=== PATIENT | male | born 1985 | race African-American/Black ===

== ENCOUNTER 2021-03-01 08:38 | Emergency (ER) | payer OTHER, SELFPAY ==
--- NOTE | ~2021-03-01 | XR_ITS ---
XR hand RT min 3V 03/01/2021 09:09 INDICATION: Right hand pain. Laceration. PROCEDURE: 3 views right hand COMPARISON: No prior studies for comparison. FINDINGS: Fracture, dislocation or subluxation is not identified. There is a healed first metacarpal fracture. The soft tissues appear within normal limits. No foreign bodies are identified. IMPRESSION: 1: NO ACUTE BONE OR JOINT ABNORMALITY IDENTIFIED. Reviewed, dictated and finalized at location B. RECONDITIONER
--- NOTE | 2021-03-01 08:52 | ED.WOUNDLAC ---
HPI - Wound/Laceration General Chief Complaint: Wound/Laceration Stated Complaint: Laceration on right hand Time Seen by Provider: 03/01/21 08:45 Source: patient and RN notes reviewed Mode of arrival: ambulatory Limitations: no limitations History of Present Illness HPI narrative: 35-year-old male presents [facility] with a laceration to the MCP joint right hand second finger. Happened sometime in the last 24 hours. Patient unsure of time because the patient has been drinking. States he woke up and there was blood everywhere. Friend applied glue and wrapped it. Patient unsure of last tetanus. Related Data Allergies Allergy/AdvReac Type Severity Reaction Status Date / Time No Known Allergies Allergy Mild Verified 03/01/21 09:00 Review of Systems Review of Systems: All systems reviewed & are unremarkable except as noted in HPI and below Constitutional: Constitutional: Reports no additional constitutional complaints, Denies chills and Denies fever(s) Eyes: Eyes: Reports no additional eye complaints ENT: Reports system reviewed and no additional complaints, except as documented Cardiovascular: Cardiovascular: Reports no additional cardiovascular complaints Respiratory: Respiratory: Reports no additional respiratory complaints, Denies cough, Denies dyspnea and Denies wheezing Gastrointestinal: Gastrointestinal: Reports no additional gastrointestinal complaints, Denies abdominal pain, Denies nausea and Denies vomiting Musculoskeletal: Musculoskeletal: Reports no additional musculoskeletal complaints Integumentary/Breasts: Skin/Breast: Reports as per HPI Comments: 1-1/2 cm lack right MCP, second finger wrapping around Neurologic: Reports system reviewed and no additional complaints, except as documented Psychiatric: Psychiatric: Reports no additional psychiatric complaints Allergic/Immunologic: Allergic/Immunologic: Reports no additional allergic/immunologic complaints [facility] Past Medical History Medical History (Updated 03/01/21 @ 10:33 by Kassandra Doyle) No significant medical problems Surgical History Surgical History (Updated 03/01/21 @ 10:29 by Kassandra Doyle) No significant past surgical history Social History Social History (Updated 03/01/21 @ 10:29 by Kassandra Doyle) Alcohol intake: current Gender identity (if verbalized by the patient): Male Comments At the time of my signature, I reviewed and agree with the nursing past medical, surgical, social, and family history. There is no relevant family history pertinent to the patient complaint. Exam Const: General: healthy appearing, no acute distress and alert Nutritional Appearance: well nourished Orientation/consciousness: patient oriented x3 Limitations: no limitations HENMT: Head: normal to inspection Neck: Neck: normal visual inspection, no lymphadenopathy and no meningeal signs Chest: Chest palpation & inspection: normal inspection of the chest Resp: Effort & Inspection: normal respiratory effort Cardio: Rate: regular rate Rhythm: regular rhythm Back/Spine/Pelvis: Back: no CVA tenderness Skin: Wounds: wounds noted laceration right hand size (1.5 cm), drainage serosanguinous, without odor and open; without any surrounding erythema Other: 1.5 cm wrapping around MCP second finger right hand, unknown open time. No signs of infection. Neuro: General: patient oriented x3, moves all extremities, no meningeal signs and no focal motor deficits Speech: normal speech Gait exam (Neuro): Normal gait present Extrem: General: normal to inspection Hand/finger images: 1. 1.5 cm lac. Full range of motion of all fingers, strong mixer wet pour, sensation intact distal to injury. Capillary refill under 2 seconds. Psych: Appearance: grossly normal and well kempt Mental Status: mental status grossly normal Affect: normal affect Attitude: cooperative Thought content: Yes Normal thought content present Course Course Emergency Course: Di
[2021-03-01 08:53] VITALS: BP 141/96; PULSE 105; RESP 16; TEMP 37.2; O2SAT 98
[2021-03-01] MEDS: TETANUS,DIPHTHERIA,AC PERTUSSIS ADULT (0.5 ML) BOOSTRIX IM (09:56)
== END 2021-03-01 10:44 | disposition home or self-care (01) ==
PROVIDERS: Emergency Provider Nurse Practitioner
DX: S61.411A Laceration without foreign body of right hand, initial encounter (principal); Z23 Encounter for immunization; W45.8XXA Other foreign body or object entering through skin, initial encounter
CPT/HCPCS: 73130; 90471; 90715; 99213; G0463

== ENCOUNTER 2021-06-08 07:57 | Emergency (ER) | payer OTHER, SELFPAY ==
[2021-06-08] VITALS (13 sets, daily range): BP systolic 116–160; BP diastolic 77–94; PULSE 67–103; RESP 4–16; TEMP 37.4–37.5; O2SAT 97–100
--- NOTE | ~2021-06-08 | XR_ITS ---
EXAMINATION: XR chest 2V EXAM DATE: 06/08/2021 08:34 INDICATION: Cough, weakness. Stupor. TECHNIQUE: Frontal and lateral projections of the chest obtained and reviewed. There is no prior katherine dy for comparison. FINDINGS: The lungs are clear. There are no pleural effusions. The cardiomediastinal silhouette is within normal limits. There is no pneumothorax suspected. The bones and soft tissues are unremarkab le. IMPRESSION: No acute cardiopulmonary findings. Reviewed, dictated and finalized at location A. IFIED SURGICAL FIRST ASSISTANT
[2021-06-08] MEDS: KETOROLAC 30 MG/ML VIAL (*BKC) IV PUSH (08:22)
[2021-06-08] MEDS: SODIUM CHLORIDE 0.9% IV 1,000 ML 999 ML IV CONT ×2 (08:24→10:20)
[2021-06-08 08:28] LABS: Basophils Percent Auto 0.4 % (0.2-1.2); Hematocrit 43.4 % (42.0-52.0); Hemoglobin 14.8 g/dL (14.0-18.0); Immature Granulocyte Absolute 0.02 K/mm3 (0.00-0.031); Immature Granulocyte Percent A 0.2 % (0-0.5); Lymphocytes Absolute Auto 0.63 K/mm3 (0.9-3.2); Lymphocytes Percent Auto 7.5 % (18.3-44.2); Mean Corpuscular HGB Conc 34.1 g/dl (32-36); Mean Corpuscular Hemoglobin 27.8 pg (26-34); Mean Corpuscular Volume 81.4 fl (80-100); Mean Platelet Volume 9.1 fl (7.4-10.4); Monocytes Absolute Auto 0.7 K/mm3 (0.1-0.6); Monocytes Percent Auto 8.5 % (2.6-8.5); Neutrophils Percent Auto 83.4 % (45.5-73.1); Platelet Count Result 256 k/mm3 (150-375); Red Blood Count 5.33 M/mm3 (4.6-6.20); Red Cell Distribution Width 14.5 % (11.5-14.5); White Blood Count 8.4 K/mm3 (4.5-10.0)
[2021-06-08 08:38] LABS: Alanine Aminotransferase 23 U/L (4-50); Albumin Level 4.6 g/dL (3.5-5.1); Alkaline Phosphatase 68 U/L (38-126); Anion Gap 9 mmol/L (8-16); Aspartate Amino Transferase 46 U/L (17-59); Bilirubin,Total 0.8 mg/dL (0.2-1.3); Blood Urea Nitrogen 9 mg/dL (9-20); Calcium 8.5 mg/dL (8.4-10.2); Carbon Dioxide 23 mmol/L (22-30); Chloride 100 mmol/L (98-107); Creatine Kinase 987 U/L (55-170); Estimated CRCL calculation 83 ml/min; Estimated Glomerular Filt Rate > 60; Glucose 107 mg/dL (65-110); Potassium 3.6 mmol/L (3.4-5.0); Sodium 132 mmol/L (137-145)
--- NOTE | 2021-06-08 09:01 | PC.NURSE ---
pt requesting to leave. pt stating I can't do this. I can't do hospitals. EDP made aware.
[2021-06-08 09:41] LABS: Ethanol < 10 mg/dL (<10)
[2021-06-08] MEDS: LORazepam INJ (*CRX) 2 MG/ML VIAL 1 MG IV PUSH (10:19)
--- NOTE | 2021-06-08 10:24 | PC.NURSE ---
pt provided ua specimen. 2nd liter hung and infusing without difficulty. pt states is wanting to go home.
[2021-06-08 10:45] LABS: Add Urine Microscopic? YES; Appearance Urine Clear (Clear); Bilirubin Urine Negative (Negative); Blood Urine 2+ (Negative); Color Urine Yellow (Yellow); Glucose Urine UA Negative (Negative); Ketones Urine Trace mg/dL (Negative); Leukocyte Esterase Ur Negative LEU/UL (Negative); Mucus Urine Rare /lpf; Nitrate Urine Negative (Negative); Protein Urine 1+ mg/dL (Negative); RBC Urine 0-2 /hpf (0-2); Specific Grav Ur 1.013 (1.001-1.035); Squamous Epithelial Cell Urine Rare /hpf (Few); Urobilinogen Urine Negative mg/dL (<2.0); WBC Urine 0-3 /hpf
[2021-06-08 10:51] LABS: Barbiturate Screen Urine Negative (Negative); Benzodiazepines Screen Urine Negative (Negative)
[2021-06-08 11:15] LABS: Cannabinoid Screen Urine Positive (Negative); Cocaine Screen Urine Negative (Negative); Methadone Screen Urine Negative (Negative); Opiate Screen Urine Negative (Negative); Phencyclidine Screen Urine Negative (Negative)
[2021-06-08 11:17] LABS: Influenza A QL RT-PCR Positive (Negative); Influenza B QL RT-PCR Negative (Negative); SARS-CoV-2 RNA PCR Negative
[2021-06-08 11:31] LABS: Amphetamine Screen Urine Positive (Negative)
[2021-06-08 12:47] LABS: Creatine Kinase 1396 U/L (55-170)
--- NOTE | 2021-06-08 13:20 | ED.GENADULT ---
HPI - General Adult General Chief complaint: Unspecified Stated complaint: pain all over Time Seen by Provider: 06/08/21 08:04 History of Present Illness HPI narrative: Patient is a 35-year-old male who presents ER with reports of body aches and being unable to move due to them. He has been having subjective fevers and chills beginning this morning. No known sick contacts. Reports any type of movement causes him diffuse body discomfort. He is feeling fatigued. He is anxious and not when reviewed hospital so he is crying. Related Data Allergies Allergy/AdvReac Type Severity Reaction Status Date / Time No Known Allergies Allergy Mild Verified 03/01/21 09:00 Review of Systems Review of Systems: All systems reviewed & are unremarkable except as noted in HPI and below Constitutional: Constitutional: Reports body ache(s), Reports chills, Reports fatigue and Reports fever(s) ENT: Denies nasal congestion and Denies sore throat Respiratory: Respiratory: Denies cough, Denies dyspnea and Denies wheezing Gastrointestinal: Gastrointestinal: Denies abdominal pain, Denies nausea and Denies vomiting PMFSH Past Medical History Medical History (Updated 06/08/21 @ 13:27 by Ariel Carr MD) No significant medical problems Surgical History Surgical History (Updated 03/01/21 @ 10:29 by Kassandra Doyle APRN) No significant past surgical history Social History Social History (Updated 03/01/21 @ 10:29 by Kassandra Doyle APRN) Alcohol intake: current Gender identity (if verbalized by the patient): Male Exam Narrative: GENERAL: Uncomfortable-appearing, well-nourished, and in no acute distress. HEAD: Normocephalic, atraumatic. EYES: PERRL and EOMI. ENT: Mucous membranes moist. CHEST: Clear to auscultation. No respiratory distress. HEART: Regular rate and rhythm. Normal peripheral pulses. ABDOMEN: Soft, nontender, nondistended. EXTREMITIES: Normal range of motion. No edema. SKIN: Warm, dry, no rash. NEURO: Alert and oriented x3. PSYCH: Crying and anxious. Course Course Emergency Course: Patient received 2 L IV fluid as well as some IV Toradol and some Ativan. Patient has been educated about the risks of rhabdomyolysis and the consequences that can occur if it is untreated. Patient is verbalized understanding fevers renal failure, permanent disability, possible need for dialysis, and risk of should he leave without additional treatment. He is willing to sign out AMA. We will still provide him with a prescription for Tamiflu. Encouraged hydration at home. Vital Signs Vital signs: Vital Signs Temperature 99.5 F 06/08/21 07:55 Pulse Rate 92 06/08/21 07:55 Respiratory Rate 16 06/08/21 07:55 Blood Pressure 160/94 H 06/08/21 07:55 Pulse Oximetry 97 06/08/21 07:55 Temperature 99.3 F 06/08/21 11:15 Pulse Rate 70 06/08/21 11:15 Respiratory Rate 16 06/08/21 11:15 Blood Pressure 139/87 06/08/21 11:15 Pulse Oximetry 100 06/08/21 10:00 Medical Decision Making Vital Signs Vital Signs: Vital Signs Temperature 99.5 F 06/08/21 07:55 Pulse Rate 92 06/08/21 07:55 Respiratory Rate 16 06/08/21 07:55 Blood Pressure 160/94 H 06/08/21 07:55 Pulse Oximetry 97 06/08/21 07:55 Temperature 99.3 F 06/08/21 11:15 Pulse Rate 70 06/08/21 11:15 Respiratory Rate 16 06/08/21 11:15 Blood Pressure 139/87 06/08/21 11:15 Pulse Oximetry 100 06/08/21 10:00 Lab Data Result diagrams: 06/08/21 08:22 06/08/21 08:22 Labs: Lab Results 06/08/21 06/08/21 06/08/21 Range/Units 08:22 08:22 08:22 WBC 8.4 (4.5-10.0) K/mm3 RBC 5.33 (4.6-6.20) M/mm3 Hgb 14.8 (14.0-18.0) g/dL Hct 43.4 (42.0-52.0) % MCV 81.4 (80-100) fl MCH 27.8 (26-34) pg MCHC 34.1 (32-36) g/dl RDW 14.5 (11.5-14.5) % Plt Count 256 (150-375) k/mm3 MPV 9.1 (7.4-10.4) fl Immature Gran % (Auto) 0.2 (0-0.5) % Neut %
== END 2021-06-08 13:38 | disposition left against medical advice (07) ==
PROVIDERS: Emergency Provider Emergency Medicine
DX: J10.1 Influenza due to other identified influenza virus with other respiratory manifestations (principal); M62.82 Rhabdomyolysis; F15.10 Other stimulant abuse, uncomplicated; Z20.822 Contact with and (suspected) exposure to COVID-19
CPT/HCPCS: 36415; 71046; 80053; 80307; 81001; 82550; 83605; 85025; 87502; 96361; 96374; 96375; 99284; C9803; J1885; J2060; J7030; U0003; U0005

== ENCOUNTER 2024-09-04 18:33 | Emergency (ER) | payer OTHER, SELFPAY ==
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
--- OUTSIDE RECORDS SUMMARY | 2024-09-04 18:40 | XMS_ITS | CONTINUITY OF CARE DOCUMENT ---
Author Name robbi culp Address Unknown Organization [facility] Address [address] [place] [address] Phone [phone] Care Team Providers Care Orchard Sprayer Name Role Phone Augustus Burdick MD Unavailable [phone] AMARILIS PETERSON MD Unavailable AMARILIS PETERSON MD Unavailable [phone] INSURANCE PROVID[employer] Payer name Policy type / Coverage type [place] red republican ID [employer] Medicaid [id number]
--- OUTSIDE RECORDS SUMMARY | 2024-09-04 18:41 | XMS_ITS | Patient Health Record ---
Author Organization [facility] Address [address] [place] [address] Care Team Providers Care Erecting Crane Operator Name Role Phone Navid Rosario Primary Care Provider [phone] Reason For Referral No Information Social History PRAPARE Question Answer Notes Date Completed/Updated: 06/25/2024 What is your current housing situation? I do not have housing (staying with others, in a hotel, in a detention, living outside on the street, on a beach, or in a park) Are you worried about losing your housing? I cho ose not to answer this question What is the highest level of school that you have finished? More than high school What is your current work situation? Unemployed and seeking work In the past year, have you o r any family members you live with been unable to get any of the following when it was really needed? Check all that apply Food,Phone Has lack of transportation k ept you from medical appointments, meetings, work or from getting things needed for daily living? Yes, it has kept me from non-medical meetings, appointments, work, or getting things needed for daily living How often do you see or talk to people that you care about and feel close to? (For example: talking to friends on the phone, visiting friends or family, going to jain or club meetings) 3 to 5 times a week How stressed are you? Stress is when someone feels tense, nervous, anxious, or can\t sleep at night because their mind is troubled Very much In the past year have you sp ent more than 2 nights in a row in a assisted, residential, halfway center, or juvenile correctional facility? Yes Do you feel physically and e motionally safe where you currently live? I choose not to answer this question In the past year, have you b een afraid of your partner or ex-partner? No PRAPARE Score: 11 Encounters Encounter Location Date Provider Diagnosis [address] [place] [address] 06/28/2024 Navid Rosario Plan Of Treatment No Information Insurance Providers Payer Name Payer Address Payer Phone Subscriber Number Group Number Insured Name Patient Relationship to Insured Coverage Start Date Coverage End Date [facility] (O) [address] [place] [address] [id number] Marcos Cervantes Self - patient is the insured 0 [phone]
--- OUTSIDE RECORDS SUMMARY | 2024-09-04 18:41 | XMS_ITS | Clinical Summary ---
Author Organization [facility] Address [address] [place] [address] Care Team Providers Care Inspector Outside Steam Distribution Name Role Phone Unavailable Primary Care Provider Unavailabl e Source Comments [facility] [employer],non-owned Affiliates and Associated Physician Practices is amultiple site organization consisting of ambulatory clinics and hospital sitesin [place], [place], [place] and [place]. This disclosure is being madepursuant to the Care Everywhere program and may not contain all information available regarding this patient. Last updated 17.[facility] [employer] Allergies No known active allergies Immunizations Immunization Administration Dates Next Due TDAP (7yrs+) 01/01/2019(Deferred: Patient Refused - Pt reports he recently was in group home, he is alredy UTD on tetanus shot) Social History Tobacco Use Types Packs/Day Years Used Date Smoking Tobacco: Every Day Cigarettes Smokeless Tobacco: Never Alcohol Use Standard Drinks/Week Comments Never 0 (1 standard drink = 0.6 oz pur e alcohol) AUDIT-C Answer Date Recorded Frequency of Alcohol Consumption Never 01/01/2019 Average Number of Drinks Not on file 019 Frequency of Binge Drinking Not on file 06/2018 Sex and Gender Information Value Date Recorded Sex Assigned at Not on file Legal Sex Male 10:53 PM CDT Gender Identity Not on file Sexual Orientation Not on file Last Filed Vital Signs Vital Sign Reading Time Taken Comments Blood Pressure 131/85 01/02/2019 1:00 AM CDT Pulse 55 01/02/2019 1:06 AM CDT Temperature 37.2 C (98.9 F) 01/01/2019 10:21 PM CDT Respiratory Rate 13 01/02/2019 1:06 AM CDT Oxygen Saturation 97% 01/02/2019 1:06 AM CDT Inhaled Oxygen Concentration - - Weight 77.1 kg (170 lb) 01/01/2019 10:21 PM CDT Height 167.6 cm (5' 6) 01/01/2019 10:21 PM CDT Body Mass Index 27.44 01/01/2019 10:21 PM CDT Plan of Treatment Health Maintenance Due Date Last Done Comments LIPID TESTING 1983 HIV SCREENING 10/30/1998 HEPATITIS C SCREENING 10/26/2001 DTAP/TDAP/TD VACCINES (1 - Tdap) 10/30/2002 HEPATITIS B VACCINE (1 of 3 - 19+ 3-dose series) 10/30/2002 COVID-19 VACCINE (1 - 2023-2 5 season) 2023 DEPRESSION SCREENING 03/31/2024 INFLUENZA VACCINE (Season Ended) 2024 ZOSTER VACCINE (1 of 2) 10/30/2033 HIB VACCINE Aged Out No longer eligi ble based on patient's age to complete this topic HPV VACCINE Aged Out No longer eligi ble based on patient's age to complete this topic MENINGOCOCCAL (Group B) VACC INE SHARED DECISION-MAKING Aged Out No longer eligibl e based on patient's age to complete this topic MENINGOCOCCAL GROUPS A/C/Y/W VACCINE Aged Out No longer eligible b ased on patient's age to complete this topic PNEUMOCOCCAL VACCINE Aged Out No long er eligible based on patient's age to complete this topic Insurance MEDICAID - [place] [facility]
[2024-09-04 19:03] LABS: Basophils Percent Auto 0.3 % (0.2-1.2); Eosinophils Absolute Auto 0.1 K/mm3 (0-0.3); Eosinophils Percent Auto 0.8 % (0-4.4); Hematocrit 40.4 % (42.0-52.0); Hemoglobin 13.3 g/dL (14.0-18.0); Immature Granulocyte Absolute 0.02 K/mm3 (0.00-0.031); Immature Granulocyte Percent A 0.2 % (0-0.5); Lymphocytes Absolute Auto 1.84 K/mm3 (0.9-3.2); Lymphocytes Percent Auto 21.4 % (18.3-44.2); Mean Corpuscular HGB Conc 32.9 g/dl (32-36); Mean Corpuscular Hemoglobin 26.6 pg (26-34); Mean Corpuscular Volume 80.8 fl (80-100); Mean Platelet Volume 9.3 fl (7.4-10.4); Monocytes Absolute Auto 1.2 K/mm3 (0.1-0.6); Monocytes Percent Auto 13.6 % (2.6-8.5); Neutrophils Absolute Auto 5.5 K/mm3 (1.3-6.7); Neutrophils Percent Auto 63.7 % (45.5-73.1); Platelet Count Result 297 k/mm3 (150-375); Red Cell Distribution Width 14.7 % (11.5-14.5); White Blood Count 8.6 K/mm3 (4.5-10.0)
[2024-09-04 19:12] LABS: Alanine Aminotransferase 22 U/L (6-50); Albumin Level 4.1 g/dL (3.5-5.1); Alkaline Phosphatase 62 U/L (38-126); Anion Gap 8 mmol/L (4-12); Aspartate Amino Transferase 24 U/L (17-59); Bilirubin,Total 0.5 mg/dL (0.2-1.3); Blood Urea Nitrogen 7 mg/dL (9-20); Calcium 9.3 mg/dL (8.4-10.2); Carbon Dioxide 28 mmol/L (22-30); Chloride 101 mmol/L (98-107); Estimated CRCL calculation 70 ml/min; Estimated Glomerular Filt Rate > 60; Glucose 107 mg/dL (65-110); Lipase 39 U/L (23-300); Potassium 3.7 mmol/L (3.4-5.0); Sodium 137 mmol/L (137-145); Total Protein 7.5 g/dL (6.3-8.2)
[2024-09-04 19:13] LABS: Add Urine Microscopic? YES; Appearance Urine Cloudy (Clear); Bacteria Urine None Seen /hpf; Bilirubin Urine Negative (Negative); Blood Urine 3+ (Negative); Color Urine Yellow (Yellow); Glucose Urine UA Negative (Negative); Ketones Urine Negative (Negative); Leukocyte Esterase Ur 3+ LEU/UL (Negative); Need Manual Microscopic Reviewed; Nitrate Urine Negative (Negative); Non Pathogenic Casts 0-2; Protein Urine 1+ mg/dL (Negative); RBC Urine >100 /hpf (0-2); Specific Grav Ur 1.013 (1.001-1.035); Squamous Epithelial Cell Urine None Seen /hpf (Few); WBC Urine >100 /hpf (0-3); pH Urine 6.5 (5.0-9.0)
--- OUTSIDE RECORDS SUMMARY | 2024-09-04 19:14 | XMS_ITS | Clinical Summary ---
Author Organization [facility] Address [address] [place] [address] Care Team Providers Care Machine Designer Name Role Phone Unavailable Primary Care Provider Unavailabl e Source Comments [facility] [employer],non-owned Affiliates and Associated Physician Practices is amultiple site organization consisting of ambulatory clinics and hospital sitesin [place], [place], [place] and [place]. This disclosure is being madepursuant to the Care Everywhere program and may not contain all information available regarding this patient. Last updated 17.[facility] [employer] Allergies No known active allergies Immunizations Immunization Administration Dates Next Due TDAP (7yrs+) 01/01/2019(Deferred: Patient Refused - Pt reports he recently was in [facility], he is alredy UTD on tetanus shot) [...] this topic Insurance MEDICAID - [place] [facility]ICAID [facility]
--- OUTSIDE RECORDS SUMMARY | 2024-09-04 19:14 | XMS_ITS | CONTINUITY OF CARE DOCUMENT ---
Author Name robbi culp Address Unknown Organization [facility] Address [address] [place] [address] Phone [phone] Care Team Providers Care Environment Coordinator Name Role Phone Augustus Burdick MD Unavailable AMARILIS PETERSON MD Unavailable AMARILIS PETERSON MD Unavailable [phone] INSURANCE PROVID[employer] Payer name Policy type / Coverage type [place] red libertarian ID [employer] Medicaid [id number]
[2024-09-04 19:30] VITALS: BP 147/92; PULSE 90; RESP 16; O2SAT 100
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
[2024-09-04 20:36] LABS: Trichomonas Vag PCR NOT DETECTED (NOT DETECTE)
[2024-09-04 21:00] LABS: Chlamydia trachomatis DETECTED (NOT DETECTE); Neisseria gonorrhoeae PCR DETECTED (NOT DETECTE)
[2024-09-04] MEDS: DOXYCYCLINE HYCLATE 100 MG TABLET PO (22:08)
[2024-09-04] MEDS: metroNIDAZOLE 500 MG TABLET 2000 MG PO (22:08)
[2024-09-04] MEDS: WATER, STERILE FOR INJECTION 10 ML VIAL XX (22:10)
[2024-09-04] MEDS: cefTRIAXone 1 GM VIAL 0.5 GM IM (22:10)
[2024-09-04 22:22] VITALS: BP 124/87; PULSE 87; RESP 18; TEMP 36.7; O2SAT 100
[2024-09-04 22:23] VITALS: BP 124/87; PULSE 87; RESP 18; TEMP 36.7; O2SAT 100
== END 2024-09-04 22:27 | disposition home or self-care (01) ==
PROVIDERS: Emergency Medicine; Emergency Provider Student in an Organized Health Care Education/Training Program
DX: A54.00 Gonococcal infection of lower genitourinary tract, unspecified (principal); A74.89 Other chlamydial diseases
CPT/HCPCS: 36415; 74176; 80053; 81001; 83690; 85025; 87086; 87491; 87591; 87661; 96372; 99284; A9270; J0696